=== PATIENT | female | born 1990 | race Caucasian/White ===

== ENCOUNTER 2017-09-18 18:11 | Emergency (ER) | payer OTHER ==
--- NOTE | 2017-09-18 18:15 | ED Physician Documentation ---
General Adult - HISTORIAN Historian: patient - HPI Stated Complaint: left knee pain after sledding Chief Complaint: Lower Extremity Problem Onset: hours (1) Timing: still present Severity: mild Further Comments: yes (She was sledding and fell . Left knee pain. She states more pain with movement. She was told as a teenager she had a torn ACL but had no surgical repair. She did take Tyelnol for pain when she was at home.) Last known Well Code/Unknown Code: Unknown - ROS CONST: no problems EYES/ENT: none GI/: none MS/SKIN/LYMPH: none NEURO/PSYCH: denies: headache, fainting, dizziness - PAST HX Past History: none Other History: none Surgeries/Procedures: none Immunizations: UTD Allergies/Adverse Reactions: Allergies Allergy/AdvReac Type Severity Reaction Status Date / Time No Known Allergies Allergy Verified 09/18/17 19:40 Home Medications: Ambulatory Orders Medication Instructions Recorded Citalopram Hydrobromide 20 mg PO D 09/18/17 [Citalopram HBr] Hydrochlorothiazide [Hydrodiuril] 12.5 mg PO D 09/18/17 Metformin HCl [Glucophage] 500 mg PO BID 09/18/17 gliPIZIDE [Glucotrol] 5 mg PO BID 09/18/17 - SOCIAL HX Smoking History: non-smoker Alcohol Use: none Drug Use: none - FAMILY HX Family History: No - REVIEWED ASSESSMENTS Nursing Assessment Reviewed: Yes Vitals Reviewed: Yes Progress - Progress Progress: 1943: She states she is doing ok with pain. She has ice pack in place. Understands results. DG ED Results Lab/Radiology - Radiology Radiology Impressions: Left knee, AP, lateral and sunrise views History: Injury, pain Findings: The osseous, joints and soft tissue structures are normal. Impression: Normal. Electronically signed on Sep 18, 2017 7:38:35 PM MANAGEMENT SPECIALIST by: Michael Gonsalves General Adult Physical Exam - PHYSICAL EXAM GENERAL APPEARANCE: no distress EENT: eye inspection normal NECK: normal inspection RESPIRATORY: no resp distress, chest non-tender, breath sounds normal CVS: reg rate & rhythm, heart sounds normal, equal pulses ABDOMEN: soft, no organomegaly, normal bowel sounds BACK: normal inspection SKIN: warm/dry, other (Bruise on left knee . Pain with palpation on lateral side of patella. No instibility noted. FROM . increased pain with extension or weight bearing ) EXTREMITIES: non-tender NEURO: oriented X3, CN's nml as tested, motor nml, sensation nml Discharge Clincal Impression: Left knee pain Qualifiers: Chronicity: acute Qualified Code(s): M25.562 - Pain in left knee Referrals: Pete Raymond MD [Primary Care Provider] - 2 Days Comments: Follow up with PCP due to history of ligament issue. Ice Elevate OTC meds for pain . Return to ER for any concerns Condition: Stable Disposition: 01 HOME, SELF-CARE Decision to Admit: NO Date of Decison to Admit: 09/18/17 Decision Time: 19:45
[2017-09-18 19:57] VITALS: BP 113/70
--- NOTE | 2017-09-19 05:51 | Diagnostic Imaging Report ---
TREY ANNA [facility] [address] [facility] [address] [id number] Report Submission Date: Sep 18, 2017 7:38:35 PM [employer] MEDIA PROGRAM DIRECTOR Patient Study Name: LUCRECIA VILLATORO Date: Sep 18, 2017 7:06:11 PM [employer] PROGRAM DIRECTOR Modality Type: CR Gender: F Description: LOWER EXTREMITY : 89 Institution: [facility] Physician: TREY ANNA Left knee, AP, lateral and sunrise views History: Injury, pain Findings: The osseous, joints and soft tissue structures are normal. Impression: Normal. Electronically signed on Sep 18, 2017 7:38:35 PM SCHO[employer] MEDIA PROGRAM DIRECTOR by: Michael ANAYA
== END 2017-09-18 19:50 | disposition home or self-care (01) ==
LOC: ED 18:11
DX: M25.562 Pain in left knee (principal)
CPT/HCPCS: 73562; 81025; 99282; 99283